=== PATIENT | female | born 1975 | race Hispanic/Latino ===

== ENCOUNTER 2022-03-17 06:54 | Outpatient (CLI) | payer MEDICAID, SELFPAY ==
--- NOTE | ~2022-03-17 | CT_ITS ---
EXAMINATION: CT abdomen pelvis w con INDICATION: Right lower quadrant pain TECHNIQUE: Computed tomographic images of the abdomen and pelvis were obtained after the administrati on of 100 cc of Omnipaque 350 intravenous contrast. The dose-length product (DLP) was 1281.48 mGy-cm. Automated exposure control and iterative reconstruction technique were employed. COMPARISON: 08/04/2015 FINDINGS: Minimal dependent atelectasis is present in the lung bases. The heart size is normal. The g allbladder is surgically absent. The liver, spleen, pancreas, and adrenal glands are normal. The left kidney is unremarkable. Hypoattenuating lesions of the right kidney measuring up to 6 mm are too sma ll to characterize but likely represent cysts. The tip of the appendix measures up to 7 mm. The remai nder of the appendix is normal in size and gas filled. No significant right lower quadrant inflammato ry change is identified. There are surgical clips at the right adnexa. There are multiple left adnexa l cysts which measure up to 3.7 cm. No pathologically enlarged abdominal or pelvic lymph nodes are id entified. There is no free intraperitoneal gas or evidence of bowel obstruction. There is mild lumbar spondylosis. IMPRESSION: 1. Mild dilatation of the tip of the appendix without significant inflammatory change, likely normal variant given chronicity of symptoms. Reviewed, dictated and finalized at location A.
[2022-03-17 07:18] LABS: Estimated Glomerular Filt Rate > 60
== END 2022-03-17 06:55 | disposition home or self-care (01) ==
PROVIDERS: Visit Provider Registered Nurse
DX: R10.31 Right lower quadrant pain (principal)
CPT/HCPCS: 74177; Q9967

== ENCOUNTER 2022-04-14 09:15 | Outpatient (CLI) | payer MEDICAID, SELFPAY ==
--- NOTE | 2022-04-14 11:00 | NEURO_ITS ---
Impression: # Complains of left hand numbness. # Evolving left Carpal Tunnel Syndrome. # No ulnar neuropathy. # Normal and symmetrical F-waves. # Normal needle/EMG exam. Motor Nerve Conduction Upper Extremities Median Nerve Conduction Velocity (m/sec) Terminal Latency (msec) Response Voltage(mV) Elbow-Wrist Wrist Elbow Wrist Right 56 2.7 4 7 Left 59 3.4 3 3 Ulnar Nerve Conduction Velocity (m/sec) Terminal Latency (msec) Response Voltage(mV) Above Elbow Below Elbow Wrist Above Elbow Below Elbow Wrist Right 57 2.3 4 6 Left 59 2.4 3 3 F-Wave Latency Median (ms) Ulnar (ms) Right 25.4 26.0 Left 25.4 26.1 Sensory Nerve Conduction Upper Extremities Median Nerve Stimulation Terminal Latency (msec) Wrist/Digit Response Voltage (uV) Wrist Right 2.8/2.9 32/51 Left 2.9/3.2 51/59 Ulnar Nerve Stimulation Terminal Latency (msec) Wrist/Digit Response Voltage (uV) Wrist Right 2.1 52 Left 2.4 43 Radial Nerve Terminal Latency (msec) Response Voltage(mV) Right 1.9 39 Left 1.9 25 Left Right Muscles Examined Fibrillation Fasciculation Scarcity Voltage Duration Left Right Left Right Left Right Left Right Left Right Deltoid Biceps X X Brachioradialis Triceps X X Pronator Teres X X Ext Indicis X X Ext Digitorum X X Abd Poll Brev X X 1st Dorsal Interosseus Paraspinals MTDD
== END 2022-04-14 09:16 | disposition home or self-care (01) ==
LOC: ANHNEURO 09:17
PROVIDERS: Visit Provider Registered Nurse
DX: M25.531 Pain in right wrist (principal); G56.22 Lesion of ulnar nerve, left upper limb
CPT/HCPCS: 95886; 95911